=== PATIENT | female | born 1975 | race Caucasian/White ===

== ENCOUNTER 2018-07-30 07:02 | Inpatient (IN) | payer OTHER ==
--- NOTE | 2018-07-30 07:27 | PDOC ---
History of Present Illness - General Chief Complaint: Pain, Acute Stated Complaint: ABD PAIN Time Seen by Provider: 07/30/18 07:25 - History of Present Illness Initial Comments: 07/30/18 08:13 The patient is a 42 year old female with no PMH that presents to ED complaining of abdominal pain. It started about month ago and got progressively worse. It is usually intermittent but last night started at 11 PM and stayed overnight. In the morning the patient took unknown antibiotic that she had at home for URI. She describes the pain as sharp, located in mid abdomen, no radiation, worse with lying flat, no alleviating factors, associated with nausea, no relation to meals. She also reports constipation. LMp was Jul 20, doesn't use protection, one partner, no discharge or bleeding. The patient denies fever, chills, diarrhea, weight changes. She didn't go to visit her PCP or GI before coming to ED. Past History - Past Medical History Allergies/Adverse Reactions: Allergies Allergy/AdvReac Type Severity Reaction Status Date / Time No Known Allergies Allergy Verified 07/30/18 07:21 Home Medications: Ambulatory Orders No Home Medications 0 dose .ROUTE UTDICT 04/23/12 COPD: No - Suicide/Smoking/Psychosocial Hx Smoking Status: No Smoking History: Never smoked Number of Cigarettes Smoked Daily: 0 Review of Systems - Review of Systems Able to Perform ROS?: Yes Constitutional: No: Symptoms Reported HEENTM: No: Symptoms Reported Respiratory: No: Symptoms reported Cardiac (ROS): No: Symptoms Reported ABD/GI: Yes: Symptoms Reported, See HPI, Constipated, Nausea, Other. No: Diarrhea, Vomiting : No: Symptoms Reported Musculoskeletal: No: Symptoms Reported *Physical Exam - Vital Signs Last Vital Signs Temp Pulse Resp BP Pulse Ox 98.4 F 85 18 148/79 99 07/30/18 07:19 07/30/18 07:19 07/30/18 07:19 07/30/18 07:19 07/30/18 07:19 - Physical Exam General Appearance: Yes: Nourished, Appropriately Dressed Respiratory/Chest: positive: Lungs Clear, Normal Breath Sounds. negative: Respiratory Distress, Accessory Muscle Use, Rales, Rhonchi, Wheezing Cardiovascular: positive: Regular Rhythm, Regular Rate. negative: Edema, Murmur Gastrointestinal/Abdominal: positive: Normal Bowel Sounds, Tender (epigastrium) , Soft, Tenderness, Other (negative Wood sign). negative: Guarding, Rebound, Mass, Hepatomegaly, Spleenomegaly Moderate Sedation - Procedure Monitoring Vital Signs: Procedure Monitoring Vital Signs Temperature 98.4 F 07/30/18 07:19 Pulse Rate 85 07/30/18 07:19 Respiratory Rate 18 07/30/18 07:19 Blood Pressure 148/79 07/30/18 07:19 O2 Sat by Pulse Oximetry (%) 99 07/30/18 07:19 ED Treatment Course - LABORATORY CBC & Chemistry Diagram: 07/30/18 08:24 07/30/18 08:24 Medical Decision Making - Medical Decision Making 07/30/18 08:33 The patient with no PMH presents complaining of abdominal pain. Differential diagnosis includes gastric/duodenal ulcer/gastritis, cholecystitis, less likely colitis since the patient doesn't have fever, diarrhea. We ordered CBC, CMP, UA, urine , abdominal US. We also treated with Zofran, Pepsid, Maalox, Tylenol. 07/30/18 11:25 Labs normal, US suggestive of acute cholecystitis. We ordered Ceftriaxone, LR at 100 cc/hr, Toradol 30 mg Q6h PRN, Dr Gonsalez was called for admission, waiting for call back. 07/30/18 12:[address] Gonsalez, accepted to [facility], Called surgery, waiting for call cabrera. *DC/Admit/Observation/Transfer Diagnosis at time of Disposition: Cholecystitis - Discharge Dispostion Condition at time of disposition: Stable Decision to Admit order: Yes - Referrals Referrals: ON STAFF,NOT [Primary Care Provider] - - Patient Instructions - Post Discharge Activity
[2018-07-30] MEDS ORDERED: ONDANSETRON 4 MG/2 ML VIAL IVPUSH ONE (07:52)
[2018-07-30] MEDS ORDERED: FAMOTIDINE 20 MG/50 ML IVPB 20 MG/50 ML MG IVPB ONE ×2 (07:58→08:11)
[2018-07-30] MEDS ORDERED: MAG HYDROX/AL HYDROX/SIMETH -MYLANTA- ORAL SUSPENSION PO ONE (07:59)
[2018-07-30] MEDS ORDERED: ONDANSETRON 4 MG/2 ML VIAL ONE (08:11)
[2018-07-30] MEDS ORDERED: MAG HYDROX/AL HYDROX/SIMETH 30 ML UNIT-DOSE CUP ONE (08:11)
[2018-07-30] MEDS ORDERED: ACETAMINOPHEN 1000 MG/100 ML VIAL (NON FORMULARY) IVPB ONE (08:12)
[2018-07-30 08:34] LABS: BASO % 0.6 % (0-2.0); EOS % 0.5 % (0-4.5); HEMATOCRIT 37.3 % (32.4-45.2); HEMOGLOBIN 12.2 GM/dL (10.7-15.3); LYMPH % 14.7 % (8-40); MCH 29.7 pg (25.7-33.7); MCHC 32.7 g/dl (32.0-36.0); MEAN CELL VOLUME 90.8 fl (80-96); MEAN PLT VOLUME 10.3 fl (7.5-11.1); MONO % 5.1 % (3.8-10.2); NEUT % 79.1 % (42.8-82.8); PLATELET COUNT 179 K/MM3 (134-434); RBC 4.11 M/mm3 (3.60-5.2); RDW 12.6 % (11.6-15.6)
[2018-07-30 08:38] LABS: URINE APPEARANCE CLEAR; URINE BILIRUBIN NEGATIVE (<2.0 mg/dL); URINE GLUCOSE (UA) NEGATIVE (NEGATIVE); URINE KETONE NEGATIVE (NEGATIVE); URINE LEUK ESTERASE NEGATIVE (NEGATIVE); URINE NITRITE NEGATIVE (NEGATIVE); URINE PROTEIN NEGATIVE (NEGATIVE); URINE UROBILINOGEN NEGATIVE mg/dL (0.2-1.0)
[2018-07-30 08:39] LABS: HCG,QUALITATIVE URINE Negative
[2018-07-30 08:46] LABS: URINE COLOR STRAW
[2018-07-30 08:49] LABS: ALBUMIN 3.8 g/dl (3.4-5.0); ALK PHOS 66 U/L (45-117); ANION GAP 8 MMOL/L (8-16); BILIRUBIN,TOTAL 0.4 mg/dL (0.2-1); BLOOD UREA NITROGEN 15 mg/dL (7-18); CALCIUM 8.4 mg/dL (8.5-10.1); CHLORIDE 104 mmol/L (98-107); CO2 24 mmol/L (21-32); CREATININE 0.6 mg/dL (0.55-1.3); GLUCOSE,RANDOM 95 mg/dL (74-106); POTASSIUM 3.9 mmol/L (3.5-5.1); SGOT/AST 15 U/L (15-37); SGPT/ALT 17 U/L (13-61); SODIUM 136 mmol/L (136-145); TOT PROT 7.4 g/dl (6.4-8.2)
--- NOTE | 2018-07-30 11:15 | PDOC ---
Attending Attestation - Resident Resident Name: Johanne Lanza - ED Attending Attestation I have performed the following: I have examined & evaluated the patient, The case was reviewed & discussed with the resident, I agree w/resident's findings & plan, Exceptions are as noted - HPI HPI: 07/30/18 09:31 42 years old no significant past medical history with one-month history of intermittent epigastric abdominal discomfort pain usually comes and goes Last night became persistent constant 8 out of 10 associated with nausea but no vomiting no diarrhea no fever ROS: A complete review of 10 out of 10 review of systems is taken and is negative apart from what is previously mentioned below and in the HPI. - Physicial Exam PE: 07/30/18 16:27 Vitals: Triage Vital signs reviewed General Appearance: no acute distress, well nourished well developed, Head: Atraumatic, Neck: Supple;No Nucal rigidity Chest Wall: Nontender Cardiac: Regular rate and rhythym, no murmurs, no rubs, no gallops, Lungs: Clear to auscultation bilateral, good air movement bilaterally, Abdomen: Soft, non distended, normal bowel sounds, epigastric tenderness to palpation, no rebound no guarding Extremities: Full range of motion to all extremities, no cyanosis, clubbing, or edema Skin: Warm and dry, no rashes or lesions, no rash, no petechiae Psych: normal mood, normal affect - Medical Decision Making 07/30/18 16:29 Chronic epigastric right upper quadrant pain intermittent over the last month now persistent constant since last night On examination patient with epigastric discomfort ultrasound was ordered which demonstrated acute cholecystitis Patient admitted to medicine anabiotic disordered surgery consult.
[2018-07-30] MEDS ORDERED: CEFTRIAXONE 2 GM-D5W BAG 2 GM/50 ML BAG IVPB ONE (11:16)
[2018-07-30] MEDS ORDERED: CEFTRIAXONE 2 GM in DEXTROSE 5%-WATER 100 ML IVPB ONE (11:30)
[2018-07-30] MEDS ORDERED: KETOROLAC TROMETHAMINE 30 MG/1 ML VIAL IVPUSH PRN (11:37)
[2018-07-30] MEDS ORDERED: CEFTRIAXONE 2 GM/100 ML BAG IVPB ONE (12:29)
--- NOTE | 2018-07-30 13:27 | HP ---
Admitting History and Physical - Primary Care Physician PCP: Kiana Gonsalez - Admission Chief Complaint: abdominal pain History of Present Illness: 42 year old female with no PMH that presents to ED complaining of abdominal pain. It started about month ago and got progressively worse. It is usually intermittent but last night started at 11 PM and stayed overnight. In the morning the patient took unknown antibiotic that she had at home for URI. She describes the pain as sharp, located in mid abdomen, no radiation, worse with lying flat, no alleviating factors, associated with nausea, no relation to meals. She also reports constipation. LMp was Jul 20, doesn't use protection, one partner, no discharge or bleeding. The patient denies fever, chills, diarrhea, weight changes. She didn't go to visit her PCP or GI before coming to ED. - Smoking History Smoking history: Never smoked Aproximately how many cigarettes per day: 0 Home Medications - Allergies Allergies/Adverse Reactions: Allergies Allergy/AdvReac Type Severity Reaction Status Date / Time No Known Allergies Allergy Verified 07/30/18 07:21 - Home Medications Home Medications: Ambulatory Orders No Home Medications 0 dose .ROUTE UTDICT 04/23/12 Physical Examination Vital Signs: Vital Signs Temperature 98.4 F 07/30/18 07:19 Pulse Rate 85 07/30/18 07:19 Respiratory Rate 18 07/30/18 07:19 Blood Pressure 148/79 07/30/18 07:19 O2 Sat by Pulse Oximetry (%) 99 07/30/18 07:19 Constitutional: Yes: No Distress HENT: Yes: Atraumatic Neck: Yes: Supple Cardiovascular: Yes: Regular Rate and Rhythm Respiratory: Yes: CTA Bilaterally Gastrointestinal: Yes: Normal Bowel Sounds, Tenderness, Epigastrium Extremities: Yes: WNL Neurological: Yes: Alert, Oriented Labs: CBC, BMP 07/30/18 08:24 07/30/18 08:24 Problem List - Problems (1) Cholecystitis Assessment/Plan: npo, ivf, surgery consult prn pain meds Code(s): K81.9 - CHOLECYSTITIS, UNSPECIFIED Assessment/Plan Laboratory Tests 07/30/18 07/30/18 07/30/18 08:22 08:24 08:24 WBC 9.0 RBC 4.11 Hgb 12.2 Hct 37.3 MCV 90.8 MCH 29.7 MCHC 32.7 RDW 12.6 Plt Count 179 D MPV 10.3 Absolute Neuts (auto) 7.1 Neutrophils % 79.1 Lymphocytes % 14.7 Monocytes % 5.1 Eosinophils % 0.5 Basophils % 0.6 Nucleated RBC % 0 Sodium 136 Potassium 3.9 Chloride 104 Carbon Dioxide 24 Anion Gap 8 BUN 15 Creatinine 0.6 Creat Clearance w eGFR > 60 Random Glucose 95 Calcium 8.4 L Total Bilirubin 0.4 AST 15 ALT 17 Alkaline Phosphatase 66 Total Protein 7.4 Albumin 3.8 Urine Color Straw Urine Appearance Clear Urine pH 5.0 Ur Specific [place] 1.014 Urine Protein Negative Urine Glucose (UA) Negative Urine Ketones Negative Urine Blood Negative Urine Nitrite Negative Urine Bilirubin Negative Urine Urobilinogen Negative Ur Leukocyte Esterase Negative Urine HCG, Qual Negative Active Medications Generic Name Dose Route Start Last Admin Trade Name Freq PRN Reason Stop Dose Admin Lactated Ringer's 1,000 ml in 1,000 mls @ 100 mls/hr 07/30/18 11:30 Lactated Ringers Solution IV ASDIR [facility] Ketorolac Tromethamine 30 mg 07/30/18 11:37 Toradol Injection - IVPUSH 08/04/18 11:36 Q6H PRN PAIN LEVEL 1 - 3
[2018-07-30] MEDS ORDERED: ONDANSETRON 4 MG/2 ML VIAL IVPB PRN (13:29)
[2018-07-30] MEDS ORDERED: MORPHINE SULFATE 2 MG/ML VIAL IVPUSH PRN (13:29)
[2018-07-30] MEDS: LACTATED RINGERS SOLUTION 1,000 ML/1,000 ML INFUS.BAG IV SCH ×2 (13:47→20:49)
[2018-07-30] MEDS ORDERED: FLU VACCINE QUAD 60 MCG/0.5 ML (MDV 18-19) IM ONE (18:45)
[2018-07-30 19:36] VITALS: BMI 30.4
[2018-07-31] MEDS: LACTATED RINGERS SOLUTION 1,000 ML/1,000 ML INFUS.BAG IV SCH (06:28)
[2018-07-31 07:28] LABS: BASO % 0.9 % (0-2.0); HEMATOCRIT 33.7 % (32.4-45.2); HEMOGLOBIN 11.1 GM/dL (10.7-15.3); LYMPH % 28.9 % (8-40); MCH 29.8 pg (25.7-33.7); MCHC 32.9 g/dl (32.0-36.0); MEAN CELL VOLUME 90.4 fl (80-96); MEAN PLT VOLUME 10.9 fl (7.5-11.1); MONO % 6.2 % (3.8-10.2); PLATELET COUNT 139 K/MM3 (134-434); RBC 3.73 M/mm3 (3.60-5.2); RDW 12.3 % (11.6-15.6); WHITE BLOOD COUNT 5.1 K/mm3 (4.0-10.0)
[2018-07-31 07:50] LABS: ALBUMIN 3.1 g/dl (3.4-5.0); ALK PHOS 64 U/L (45-117); ANION GAP 8 MMOL/L (8-16); BILIRUBIN,TOTAL 0.5 mg/dL (0.2-1); BLOOD UREA NITROGEN 11 mg/dL (7-18); CHLORIDE 105 mmol/L (98-107); CO2 27 mmol/L (21-32); CREATININE 0.6 mg/dL (0.55-1.3); GLUCOSE,RANDOM 91 mg/dL (74-106); POTASSIUM 3.8 mmol/L (3.5-5.1); SGOT/AST 10 U/L (15-37); SGPT/ALT 14 U/L (13-61); SODIUM 140 mmol/L (136-145); TOT PROT 6.1 g/dl (6.4-8.2)
[2018-07-31] MEDS ORDERED: ONDANSETRON 4 MG/2 ML VIAL IVPUSH PRN ×3 (10:10→13:37)
[2018-07-31] MEDS ORDERED: LACTATED RINGERS SOLUTION 1,000 ML IV SCH (10:15)
--- NOTE | 2018-07-31 11:35 | PN ---
Progress Note (short form) - Note Progress Note: surgery pt seen and examined. full consult dictated. 42m with 1 month intermittent epigastric abd pain and now 24 hours of severe pain in ruq with nausea. u/s consistent with stones, thickened gb, and sonographic chavira. Pt has had no improvement in symptoms despite iv rocephin and npo status. on exam abd is soft with localized ruq tenderness with rebound and guarding. labs unremarkable Plan- clinically acute cholecystitis failing medical management. agree with abx. will move in direction of surgery.
[2018-07-31] MEDS ORDERED: LIDOCAINE HCL/PF 2% SDV 5ML VIAL ONE (11:38)
[2018-07-31] MEDS ORDERED: DEXAMETHASONE SOD PHOSPHATE 4 MG/1 ML VIAL ONE (11:38)
[2018-07-31] MEDS ORDERED: KETOROLAC TROMETHAMINE 30 MG/1 ML VIAL ONE (11:38)
[2018-07-31] MEDS ORDERED: fentaNYL CITRATE 250 MCG/5 ML VIAL ONE ×2 (11:38→12:38)
[2018-07-31] MEDS ORDERED: CEFOXITIN SODIUM 1 GM IVPB ONE (11:38)
[2018-07-31] MEDS ORDERED: ROCURONIUM BROMIDE 50 MG/5 ML VIAL ONE (11:39)
[2018-07-31] MEDS ORDERED: PROPOFOL 20 ML ONE (11:39)
[2018-07-31] MEDS ORDERED: MIDAZOLAM HCL 2 MG/2 ML SINGLE DOSE VIAL ONE (11:46)
[2018-07-31] MEDS ORDERED: BUPIVACAINE HCL/PF 0.5% (5MG/ML) 10 ML VIAL ONE (11:46)
[2018-07-31] MEDS ORDERED: cefoTEtan DISODIUM 1 GM VIAL (RESTRICTED TO ID) IVPB ONE (11:50)
--- NOTE | 2018-07-31 12:09 | CONS ---
DATE OF CONSULTATION: 07/31/2018 REASON FOR CONSULTATION: Acute cholecystitis, cholelithiasis. This is an inpatient consultation at the request of the medical team. BRIEF HISTORY: This is a 42-year-old female with several months of epigastric and right upper quadrant abdominal pain. She states that yesterday she developed severe pain in the right upper quadrant with nausea. The pain persisted throughout the day. She came into the [facility] Emergency Room where she had an ultrasound which was consistent with acute cholecystitis. She was given Rocephin antibiotic and admitted to the hospital for acute cholecystitis, and a surgical consultation was requested. Overnight, her symptoms did not improve at the time of my evaluation. She denies vomiting. She denies recent weight loss. PAST MEDICAL HISTORY: Otherwise negative. PAST SURGICAL HISTORY: Includes a section. SOCIAL HISTORY: Negative for alcohol. Negative for tobacco. MEDICATIONS: She takes no medications but states she did take an antibiotic pill at home. ALLERGIES: She has no known drug allergies. REVIEW OF SYSTEMS: General: Denies fatigue or malaise. Cardiac: Denies chest pain or palpitations. Respiratory: Denies shortness of breath or wheeze. Gastrointestinal: As in HPI. Genitourinary: Denies dysuria. Musculoskeletal: Denies joint pain. Psychiatric: Denies anxiety, depression, or hearing voices. PHYSICAL EXAMINATION: General: This is an obese, 42-year-old female in no distress. Vital Signs: She is afebrile. HEENT: Her head is normocephalic. Sclerae are anicteric. Neck: Supple. Chest: Clear. Abdomen: Soft. She has localized right upper quadrant tenderness with rebound and guarding. She has a well-healed Pfannenstiel incision without obvious hernia. Extremities: No edema. LABORATORY DATA: On review of her laboratory, they are unremarkable with normal liver function tests and white blood cell count. Her urinalysis is negative for . IMAGING: Her imaging shows an ultrasound with stones, one impacted with a thickened gallbladder wall and a positive sonographic Wood sign. ASSESSMENT: A 42-year-old female with severe right upper quadrant pain, peritoneal findings in right upper quadrant, ultrasound findings consistent with acute cholecystitis. Clinically, this is acute cholecystitis. I agree with admission. I agree with Rocephin antibiotic. At this point, she is failing medical management, and we will proceed with surgery. Risks and benefits of surgery have been explained to the patient in detail. These are including, but not limited to, the possibility of conversion to open, the possibility of common bile duct injury, possibility of cystic duct stump leak, possibility of injury to viscera, possibility of blood loss requiring blood transfusion, possibility of future obstruction, possibility of future hernia, plus a multitude of medical risks including, but not limited to, cardiac, neurologic, pulmonary, and vascular complications, even . Patient understands these risks and is agreeable to surgery. DO OBED [id number]
[2018-07-31] MEDS ORDERED: NEOSTIGMINE METHYLSULFATE 0.5 MG/ML - 10 ML MDV ONE (12:37)
[2018-07-31] MEDS ORDERED: GLYCOPYRROLATE 0.2 MG/1 ML VIAL ONE ×2 (12:37)
--- NOTE | 2018-07-31 12:43 | OP ---
Operative Note - Note: Operative Date: 07/31/18 Pre-Operative Diagnosis: acute cholecystitis, cholelithiasis Operation: laparoscopic cholecytectomy, lavage Findings: pale, edematous, gb Post-Operative Diagnosis: Same as Pre-op Surgeon: Waylon Smith Meat Grinder: Nicolas Yoon Anesthesiologist/FLEA MARKET SELLER: Waylon Gonzalez Anesthesia: General Specimens Removed: gb Estimated Blood Loss (mls): 10 Operative Report Dictated: Yes
[2018-07-31] MEDS ORDERED: MORPHINE SULFATE 8 MG/ML VIAL IVPB PRN (12:49)
[2018-07-31] MEDS ORDERED: oxyCODONE HCL 5 MG TABLET PO PRN (12:49)
--- NOTE | 2018-07-31 12:58 | SURG ---
Surgery Platen Press Operator Note Platen Press Operator: Nicolas Yoon PA-C Date of Service: 07/31/18 Diagnosis: Acute cholecystitis Procedure: Laproscopic cholecystectomy I was present for the entirety of the operative procedure. For further detail, please refer to operative report.
[2018-07-31] MEDS ORDERED: PROMETHAZINE HCL 25 MG/1 ML VIAL IVPUSH PRN (12:59)
--- NOTE | 2018-07-31 13:36 | OP ---
DATE OF OPERATION: 07/31/2018 PREOPERATIVE DIAGNOSIS: Acute cholecystitis/cholelithiasis. POSTOPERATIVE DIAGNOSIS: Acute cholecystitis/cholelithiasis. PROCEDURE: Laparoscopic cholecystectomy and lavage. SURGEON: Waylon Smith DO BARREL ROLLER OPERATOR: RONNIE Combs ANESTHESIOLOGIST: Waylon Gonzalez MD SPECIMEN: Gallbladder. INTRAOPERATIVE FINDINGS: A pale, edematous, distended gallbladder consistent with acute cholecystitis. BLOOD LOSS: Minimal. DRAINS: None. COMPLICATIONS: None. DISPOSITION: Recovery in stable condition. BRIEF HISTORY: This is a 42-year-old female who presented to [facility] with signs and symptoms of acute cholecystitis and sonographic evidence to support that. She presents now for surgical management. PROCEDURE: The patient was placed in supine position. After general anesthesia was initiated, the abdomen was prepped and draped in sterile fashion. A transverse incision was made infraumbilical with scalpel. It was carried through skin and subcutaneous tissue. The fascia was then lifted with Marguerite clamp. Veress needle was inserted, and pneumoperitoneum was created. Next an 11-mm trocar was placed followed by insertion of a 10-mm 0-degree laparoscope. Next an additional 11-mm trocar was placed subxiphoid, and two 5-mm trocars were placed in the right upper quadrant. Attention was turned toward the right upper quadrant. The gallbladder was seen. It was pale and edematous. Omental adhesions were taken down sharply. The fundus was then lifted cephalad. The infundibulum retracted laterally. The peritoneal peel was dissected down exposing a generous cystic duct and a small cystic artery. Both were clipped and divided. The gallbladder was then liberated from the liver bed using electrocautery and hemostasis was maintained using electrocautery. The gallbladder was then placed in a specimen bag and removed through the infraumbilical trocar site after a mild fascial dilatation and sent to Pathology marked as specimen. A vigorous lavage was done an all return was clear. No bleeding was noted. Also, no bleeding was noted as trocars were removed under direct visualization. At this point, with pneumoperitoneum released, the fascia at the infraumbilical trocar site was closed with multiple interrupted 0 Vicryl sutures, and the 4 skin incisions were closed with Biosyn, and Dermabond dressing was placed. Overall the patient tolerated the procedure well. There were no complications. The patient went to recovery room in stable condition. DO OBED WOODY/[id number] MTDD
[2018-07-31] MEDS ORDERED: KETOROLAC TROMETHAMINE 30 MG/1 ML VIAL IVPUSH PRN (13:37)
[2018-07-31] MEDS: ONDANSETRON 4 MG/2 ML VIAL IVPUSH PRN ×2 (14:12→21:36)
[2018-07-31] MEDS: LACTATED RINGERS SOLUTION 1,000 ML IV SCH (14:40)
--- NOTE | 2018-07-31 15:14 | PN ---
Progress Note, Physician History of Present Illness: s/p surgery - Current Medication List Current Medications: Active Medications Enoxaparin Sodium (Lovenox -) 40 mg SQ DAILY [facility] Fentanyl (Sublimaze Injection -) 50 mcg IVPUSH [id number] PRN PRN Reason: PAIN-PACU ORDER X 4 DOSES ONLY Fentanyl (Sublimaze Injection -) 50 mcg IVPUSH [id number] PRN PRN Reason: PAIN-PACU ORDER X 4 DOSES ONLY Last Admin: 07/31/18 13:55 Dose: 50 mcg Lactated Ringer's (Lactated Ringers Solution) 1,000 mls @ 75 mls/hr IV ASDIR RA Last Admin: 07/31/18 14:40 Dose: 0 mls Ketorolac Tromethamine (Toradol Injection -) 30 mg IVPUSH Q6H PRN PRN Reason: PAIN LEVEL 1 - 3 Stop: 08/04/18 11:36 Morphine Sulfate (Morphine Injection) 8 mg IVPB Q3H PRN PRN Reason: PAIN LEVEL 7 - 10 Ondansetron HCl (Zofran Injection) 4 mg IVPUSH Q6H PRN PRN Reason: NAUSEA Last Admin: 07/31/18 14:12 Dose: 4 mg Ondansetron HCl (Zofran Injection) 4 mg IVPUSH Q6H PRN PRN Reason: NAUSEA AND/OR VOMITING Oxycodone HCl (Roxicodone -) 7.5 mg PO Q4H PRN PRN Reason: PAIN LEVEL 4 - 6 Oxycodone HCl (Roxicodone -) 10 mg PO Q4H PRN PRN Reason: PAIN LEVEL 6-10 Stop: 08/01/18 12:58 Pantoprazole Sodium (Protonix Iv) 40 mg IVPUSH DAILY [facility] Promethazine HCl (Phenergan Injection -) 12.5 mg IVPUSH Q6H PRN PRN Reason: NAUSEA-FOR RESCUE AFTER 15 MIN - Objective Vital Signs: Vital Signs Temperature 98.5 F 07/31/18 14:47 Pulse Rate 60 07/31/18 14:47 Respiratory Rate 18 07/31/18 14:47 Blood Pressure 108/60 07/31/18 14:47 O2 Sat by Pulse Oximetry (%) 100 07/31/18 14:40 Constitutional: Yes: No Distress HENT: Yes: Atraumatic Neck: Yes: Supple Cardiovascular: Yes: Regular Rate and Rhythm Respiratory: Yes: CTA Bilaterally Gastrointestinal: Yes: Tenderness, Epigastrium (s/p surgery) Extremities: Yes: WNL Edema: No Peripheral Pulses WNL: Yes Neurological: Yes: Alert, Oriented Labs: CBC, BMP 07/31/18 06:15 07/31/18 06:15 Problem List - Problems (1) Cholecystitis Assessment/Plan: s/p surgery regular diet prn pain meds Code(s): K81.9 - CHOLECYSTITIS, UNSPECIFIED
[2018-07-31] MEDS: oxyCODONE HCL 5 MG TABLET PO PRN ×2 (18:19→22:52)
[2018-08-01] MEDS: LACTATED RINGERS SOLUTION 1,000 ML IV SCH (06:19)
--- NOTE | 2018-08-01 08:07 | PN ---
Progress Note (short form) - Note Progress Note: surgery pt ambulating, voiding, and tolerating diet. afebrile Plan- surgically stable for d/c off abx and narcotics. f/u in 2 weeks. ok to shower. no lifting. regular diet. 2 weeks off work. [phone]
[2018-08-01] MEDS: oxyCODONE HCL 5 MG TABLET PO PRN (09:06)
[2018-08-01] MEDS: ONDANSETRON 4 MG/2 ML VIAL IVPUSH PRN (09:08)
[2018-08-01] MEDS ORDERED: ENOXAPARIN NA (PORCINE) 40 MG/0.4 ML DISP.SYRIN SQ SCH (10:00)
[2018-08-01] MEDS ORDERED: PANTOPRAZOLE SODIUM 40 MG VIAL IVPUSH SCH (10:00)
--- NOTE | 2018-08-01 10:22 | PN ---
Progress Note (short form) - Note Progress Note: Anesthesia POD#1 S/P Lap Cholecystectomy under GA VSS,some nausea,she is given the medison,pain is mild. No complications to anesthesia seen. Daniela Eng MD
--- NOTE | 2018-08-01 11:25 | PN ---
Progress Note (short form) - Note Progress Note: 42yo F s/p lap vangie POD 1, pt seen and examined at bedside. Pt denies any fever, chills, n/v. Pt complaining of some mild abd pain. Pt ambulating and urinating well. Last Vital Signs Temp Pulse Resp BP Pulse Ox 97.9 F 76 18 137/68 100 08/01/18 09:21 08/01/18 09:21 08/01/18 09:21 08/01/18 09:21 07/31/18 21:00 CBC, BMP 07/31/18 06:15 07/31/18 06:15 PE: Gen: A&O x 3 Resp: breathing comfortably Abd: soft, nondistended, mild tenderness. Incisions are clean with no erythema or discharge Ext: no edema Problem List - Problems (1) Cholecystitis Assessment/Plan: Plan -pt cleared for discharge from surgical standpoint, -follow up with Dr. Smith in 2 weeks -no need for abx Code(s): K81.9 - CHOLECYSTITIS, UNSPECIFIED
[2018-08-01 14:43] VITALS: BP 126/57; PULSE 72; TEMP 98.2
--- NOTE | 2018-08-01 17:24 | PATH ---
Surgical Pathology Report Patient Name: NANCY SHINE Med. Rec. #: [id number] /Age/Gender: 1975 (Age: 42) / F Account: [id number] Location: [facility] MED/SURG Taken: 07/31/2018 Received: 07/31/2018 Reported: 08/01/2018 Physicians: Sophia Alvares M.D. Specimen(s) Received GALLBLADDER Clinical History Cholecystitis Final Diagnosis GALLBLADDER, LAPAROSCOPIC CHOLECYSTECTOMY: CHRONIC CHOLECYSTITIS WITH CHOLESTEROLOSIS AND CHOLELITHIASIS. SMALL FRAGMENT OF UNREMARKABLE LIVER PARENCHYMA. Electronically Signed Debby Mata M.D. Gross Description Received in formalin, labeled "gallbladder," is a 7.0 x 2.7 x 2.1 cm. gallbladder with a 0.2 cm. in length portion of cystic duct attached. The outer surface is mckeon leahy and varies from smooth to shaggy. The lumen contains mckeon, tenacious bile and red blood as well as a 0.8 cm in greatest dimension yellow, spherical, bosselated cholelith. The mucosa is mckeon-red with gold cholesterol stippling. The wall of the gallbladder averages 0.2 cm. in thickness. Academic Tutor sections are submitted in one cassette. 07/31/201807/31/2018
--- NOTE | 2018-08-01 20:39 | DS ---
Physical Examination Vital Signs: Vital Signs Temperature 98.2 F 08/01/18 14:41 Pulse Rate 72 08/01/18 14:41 Respiratory Rate 18 08/01/18 14:41 Blood Pressure 126/57 L 08/01/18 14:41 O2 Sat by Pulse Oximetry (%) 100 08/01/18 09:00 Constitutional: Yes: No Distress HENT: Yes: Atraumatic Neck: Yes: Supple Cardiovascular: Yes: Regular Rate and Rhythm Respiratory: Yes: CTA Bilaterally Gastrointestinal: Yes: Normal Bowel Sounds, Tenderness (at the surgery site) Extremities: Yes: WNL Edema: No Peripheral Pulses WNL: Yes Neurological: Yes: Alert, Oriented Labs: CBC, BMP 07/31/18 06:15 07/31/18 06:15 Discharge Summary Reason For Visit: CHOLECYSTITIS Condition: Stable - Instructions Diet, Activity, Other Instructions: tylenol 650 mg every 6 hours as needed see your pmd in next few days Referrals: ON STAFF,NOT [Primary Care Provider] - Waylon Smith MD [Staff Physician] - Disposition: HOME - Home Medications Comprehensive Discharge Medication List: Ambulatory Orders No Home Medications 0 dose .ROUTE UTDICT 04/23/12 ia home
== END 2018-08-01 15:26 | disposition home or self-care (01) | DRG 419 ==
LOC: JER 07:02 → JERBED 11:34 → J8W 18:08
PROVIDERS: ADMIT Internal Medicine; ATTEND Internal Medicine
PROC: 0FT44ZZ Resection of Gallbladder, Percutaneous Endoscopic Approach (ICD-10-PCS; principal; 2018-07-31 11:30)
DX: K80.00 Calculus of gallbladder with acute cholecystitis without obstruction (principal)
CPT/HCPCS: 36415; 76700-TC; 80053; 81003; 84703; 85025; 88304-TC; 90688; 94760; 99283-25; G0008